=== PATIENT | female | born 1965 | race Caucasian/White ===

== ENCOUNTER 2017-11-16 23:56 | Inpatient (IN) | payer BC ==
[~2017-11-16] VITALS: Ht 165.1 cm; Wt 63.5 kg
[2017-11-17 02:25] LABS: BASOPHIL % 0.9 % (0-2); PLATELET COUNT 288 x10^3mcL (130-400); RED CELL DISTRIBUTION WIDTH 12.4 % (11.5-14.5)
[2017-11-17 02:41] LABS: CALCIUM 8.8 mg/dL (8.5-10.1); CARBON DIOXIDE 27.6 mmol/L (21-32); CHLORIDE SERUM 107 mmol/L (98-107); CREATININE SERUM 0.8 mg/dL (0.6-1.0); GFR1 > 60 mL/min; GLUCOSE SERUM 130 mg/dL (74-106); POTASSIUM SERUM 3.1 mmol/L (3.5-5.1); SODIUM SERUM 145 mmol/L (136-145)
[2017-11-17 02:53] LABS: ALKALINE PHOSPHATASE 95 U/L (46-116); ALT/SGPT 19 U/L (14-59); AST/SGOT 18 U/L (15-37); BILIRUBIN TOTAL 0.66 mg/dL (0.20-1.00); LIPASE 1031 IU/L (73-393); TOTAL PROTEIN, SERUM 6.9 g/dL (6.4-8.2)
[2017-11-17] MEDS ORDERED: CYMBALTA60 M1 PO (03:25)
[2017-11-17] MEDS ORDERED: GABAPENTIN100 M2 PO (03:25)
[2017-11-17] MEDS ORDERED: NORCO1 TA2 PO (03:26)
[2017-11-17] MEDS ORDERED: MOT800 PO (03:26)
[2017-11-17] MEDS ORDERED: TRAMADOL HCL50 MG PO (03:26)
[2017-11-17] MEDS ORDERED: BUPROPION HYDR300 MG PO (03:26)
[2017-11-17] MEDS ORDERED: AMBIEN10 MG PO (03:27)
[2017-11-17] MEDS ORDERED: ZOF4 PO (03:27)
[2017-11-17 06:07] VITALS: BP 137/74
[2017-11-17 09:09] VITALS: BP 104/71
[2017-11-17 13:26] VITALS: BP 121/64
[2017-11-17 14:38] LABS: CHOLESTEROL/HDL RATIO 3.2; MAGNESIUM 1.9 mg/dL (1.8-2.4); PHOSPHOROUS 2.8 mg/dL (2.5-4.9)
[2017-11-17 14:49] LABS: FREE T4 0.98 ng/dL (0.76-1.46); FREE THYROXINE INDEX 3.2 ug/dL (1.4-4.5)
[2017-11-17 15:47] LABS: T3 TOTAL 1.04 ng/mL
[2017-11-17 16:37] VITALS: BP 129/63
[2017-11-17 20:59] VITALS: BP 128/59
[2017-11-18 05:46] VITALS: BP 118/54
[2017-11-18 07:27] LABS: CALCIUM 8.9 mg/dL (8.5-10.1); CARBON DIOXIDE 27.2 mmol/L (21-32); CHLORIDE SERUM 107 mmol/L (98-107); CREATININE SERUM 0.9 mg/dL (0.6-1.0); GFR1 > 60 mL/min; GLUCOSE SERUM 93 mg/dL (74-106); POTASSIUM SERUM 3.5 mmol/L (3.5-5.1); SODIUM SERUM 145 mmol/L (136-145)
[2017-11-18 07:59] LABS: BASOPHIL % 0.5 % (0-2); PLATELET COUNT 245 x10^3mcL (130-400); RED CELL DISTRIBUTION WIDTH 12.4 % (11.5-14.5)
[2017-11-18 09:14] VITALS: BP 133/55
[2017-11-18 12:33] LABS: microscopic required? NO
[2017-11-18 12:37] LABS: UA SPECIFIC GRAVITY >=1.030 (1.005-1.035); urine erythrocyte NEGATIVE (NEGATIVE)
[2017-11-18 13:55] VITALS: BP 135/75
[2017-11-18 17:22] VITALS: BP 133/79
[2017-11-18 19:20] VITALS: BP 124/69
[2017-11-19 05:42] VITALS: BP 97/55
[2017-11-19 06:52] LABS: CALCIUM 7.8 mg/dL (8.5-10.1); CARBON DIOXIDE 25.1 mmol/L (21-32); CHLORIDE SERUM 111 mmol/L (98-107); CREATININE SERUM 0.7 mg/dL (0.6-1.0); GFR1 > 60 mL/min; GLUCOSE SERUM 74 mg/dL (74-106); POTASSIUM SERUM 3.2 mmol/L (3.5-5.1); SODIUM SERUM 144 mmol/L (136-145)
[2017-11-19 09:50] VITALS: BP 121/67
[2017-11-19 14:06] VITALS: BP 147/83
[2017-11-19 17:56] VITALS: BP 146/78
[2017-11-19 19:30] VITALS: BP 145/77
[2017-11-20 06:08] VITALS: BP 122/73
[2017-11-20 07:41] LABS: CALCIUM 8.7 mg/dL (8.5-10.1); CARBON DIOXIDE 27.4 mmol/L (21-32); CHLORIDE SERUM 107 mmol/L (98-107); CREATININE SERUM 0.7 mg/dL (0.6-1.0); GFR1 > 60 mL/min; GLUCOSE SERUM 81 mg/dL (74-106); POTASSIUM SERUM 3.4 mmol/L (3.5-5.1); SODIUM SERUM 144 mmol/L (136-145)
[2017-11-20 10:18] LABS: BASOPHIL % 0.8 % (0-2); PLATELET COUNT 216 x10^3mcL (130-400); RED CELL DISTRIBUTION WIDTH 11.9 % (11.5-14.5)
[2017-11-20 12:10] VITALS: BP 131/77
[2017-11-20 16:34] VITALS: BP 116/77
[2017-11-20 20:44] VITALS: BP 137/61
[2017-11-21 05:29] VITALS: BP 134/71
[2017-11-21 06:35] LABS: BASOPHIL % 0.5 % (0-2); PLATELET COUNT 266 x10^3mcL (130-400); RED CELL DISTRIBUTION WIDTH 12.1 % (11.5-14.5)
[2017-11-21 06:55] LABS: CALCIUM 8.7 mg/dL (8.5-10.1); CARBON DIOXIDE 22.9 mmol/L (21-32); CHLORIDE SERUM 106 mmol/L (98-107); CREATININE SERUM 0.7 mg/dL (0.6-1.0); GFR1 > 60 mL/min; GLUCOSE SERUM 89 mg/dL (74-106); POTASSIUM SERUM 3.4 mmol/L (3.5-5.1); SODIUM SERUM 142 mmol/L (136-145)
[2017-11-21 09:02] VITALS: BP 136/72
[2017-11-21 12:46] VITALS: BP 122/66
[2017-11-21 16:40] VITALS: BP 129/72
[2017-11-21 19:56] VITALS: BP 132/75
[2017-11-22 05:23] VITALS: BP 132/68
[2017-11-22 07:17] LABS: BASOPHIL % 0.2 % (0-2); PLATELET COUNT 234 x10^3mcL (130-400); RED CELL DISTRIBUTION WIDTH 12.2 % (11.5-14.5)
[2017-11-22 08:08] LABS: CALCIUM 8.9 mg/dL (8.5-10.1); CARBON DIOXIDE 24.7 mmol/L (21-32); CHLORIDE SERUM 108 mmol/L (98-107); CREATININE SERUM 0.6 mg/dL (0.6-1.0); GFR1 > 60 mL/min; GLUCOSE SERUM 179 mg/dL (74-106); MAGNESIUM 2.2 mg/dL (1.8-2.4); PHOSPHOROUS 2.7 mg/dL (2.5-4.9); SODIUM SERUM 145 mmol/L (136-145)
[2017-11-22 09:51] VITALS: BP 126/70
[2017-11-22] MEDS ORDERED: FLE10 PO (10:54)
[2017-11-22] MEDS ORDERED: APAP/HYDROCODON1 T13 PO (10:55)
[2017-11-22 11:26] VITALS: BP 126/70
== END 2017-11-22 16:23 | disposition home or self-care (01) | DRG 335 ==
LOC: ED 23:56 → MU 11-17 04:43 → DU 11-17 04:43 → MU 11-19 07:40
PROVIDERS: Emergency Medicine; Family Medicine; Surgery
PROC: 0DB78ZX Excision of Stomach, Pylorus, Via Natural or Artificial Opening Endoscopic, Diagnostic (ICD-10-PCS; 2017-11-18)
PROC: 0DB68ZX Excision of Stomach, Via Natural or Artificial Opening Endoscopic, Diagnostic (ICD-10-PCS; 2017-11-18)
PROC: 0DBB8ZX Excision of Ileum, Via Natural or Artificial Opening Endoscopic, Diagnostic (ICD-10-PCS; 2017-11-18)
PROC: 0DBE8ZX Excision of Large Intestine, Via Natural or Artificial Opening Endoscopic, Diagnostic (ICD-10-PCS; 2017-11-18)
PROC: 0DTJ0ZZ Resection of Appendix, Open Approach (ICD-10-PCS; 2017-11-20)
PROC: 0DNU0ZZ Release Omentum, Open Approach (ICD-10-PCS; principal; 2017-11-20 08:00)
DX: K56.50 Intestinal adhesions [bands], unspecified as to partial versus complete obstruction (principal); N17.0 Acute kidney failure with tubular necrosis; M48.56XA Collapsed vertebra, not elsewhere classified, lumbar region, initial encounter for fracture; E87.6 Hypokalemia; E83.51 Hypocalcemia; K29.70 Gastritis, unspecified, without bleeding; K57.30 Diverticulosis of large intestine without perforation or abscess without bleeding; M79.7 Fibromyalgia; N28.1 Cyst of kidney, acquired; E78.5 Hyperlipidemia, unspecified; Z68.23 Body mass index [BMI] 23.0-23.9, adult; Z87.891 Personal history of nicotine dependence; Z79.1 Long term (current) use of non-steroidal anti-inflammatories (NSAID); Z88.2 Allergy status to sulfonamides; Z88.8 Allergy status to other drugs, medicaments and biological substances; Z90.710 Acquired absence of both cervix and uterus; Z98.51 Tubal ligation status; J45.909 Unspecified asthma, uncomplicated
CPT/HCPCS: 43235; 45378; 83880; 84439; 94150; J0295; J0330; J0690; J1170; J1200; J1610; J1885; J2175; J2250; J2270; J2310; J2405; J2550; J2704; J2920; J3010; J3490; J7030; J7120; Q0092; Q9967

== ENCOUNTER 2017-12-01 09:55 | Inpatient (IN) | payer BC ==
[~2017-12-01] VITALS: Ht 165.1 cm; Wt 64.6 kg
[~2017-12-01 09:55] MED LIST: AMBIEN10 MG PO; APAP/HYDROCODON1 T13 PO; BUPROPION HYDR300 MG PO; CYMBALTA60 M1 PO; FLE10 PO; GABAPENTIN100 M2 PO; MOT800 PO; NORCO1 TA2 PO; TRAMADOL HCL50 MG PO; ZOF4 PO
[2017-12-01 11:20] LABS: UA SPECIFIC GRAVITY <=1.005 (1.005-1.035); microscopic required? YES; urine erythrocyte NEGATIVE (NEGATIVE)
[2017-12-01 11:32] LABS: CALCIUM 10.1 mg/dL (8.5-10.1); CARBON DIOXIDE 26.7 mmol/L (21-32); CREATININE SERUM 1.4 mg/dL (0.6-1.0); POTASSIUM SERUM 3.8 mmol/L (3.5-5.1)
[2017-12-01 11:40] LABS: ALBUMIN 4.3 g/dL (3.4-5.0); BILIRUBIN TOTAL 0.5 mg/dL (0.20-1.00); TOTAL PROTEIN, SERUM 8.5 g/dL (6.4-8.2)
[2017-12-01 11:51] LABS: BASOPHIL % 0.2 % (0-2); RED CELL DISTRIBUTION WIDTH 12.6 % (11.5-14.5)
[2017-12-01 12:11] LABS: PLATELET COUNT 642 x10^3mcL (130-400)
[2017-12-01] MEDS ORDERED: NEU300 PO (12:25)
[2017-12-01 13:45] VITALS: BP 128/73
[2017-12-01 13:56] VITALS: BP 128/73
[2017-12-01 15:10] LABS: T3 TOTAL 1.22 ng/mL
[2017-12-01 15:13] LABS: FREE T4 0.98 ng/dL (0.76-1.46); FREE THYROXINE INDEX 2.8 ug/dL (1.4-4.5); T4(THYROXINE) 8.9 ug/dL (4.7-13.3)
[2017-12-01 15:28] LABS: CHOLESTEROL/HDL RATIO 3.8; MAGNESIUM 2.2 mg/dL (1.8-2.4); PHOSPHOROUS 1.8 mg/dL (2.5-4.9)
[2017-12-01 17:11] VITALS: BP 134/73
[2017-12-01 20:47] VITALS: BP 123/82
[2017-12-02 05:04] LABS: AMPHETAMINE QUAL UR NONE DETECTED (NEG <=1000)
[2017-12-02 05:28] VITALS: BP 101/58
[2017-12-02 06:01] LABS: BASOPHIL % 0.3 % (0-2); RED CELL DISTRIBUTION WIDTH 12.8 % (11.5-14.5)
[2017-12-02 06:46] LABS: PLATELET COUNT 427 x10^3mcL (130-400)
[2017-12-02 07:05] LABS: CALCIUM 9.3 mg/dL (8.5-10.1); CARBON DIOXIDE 27.1 mmol/L (21-32); CHLORIDE SERUM 105 mmol/L (98-107); GFR1 > 60 mL/min; GLUCOSE SERUM 104 mg/dL (74-106); MAGNESIUM 2.2 mg/dL (1.8-2.4); PHOSPHOROUS 4.2 mg/dL (2.5-4.9); POTASSIUM SERUM 3.3 mmol/L (3.5-5.1); SODIUM SERUM 144 mmol/L (136-145)
[2017-12-02 09:30] VITALS: BP 128/50
[2017-12-02 17:52] VITALS: BP 108/50
[2017-12-02 21:32] VITALS: BP 118/58
[2017-12-03 05:18] VITALS: BP 102/55
[2017-12-03 06:50] LABS: BASOPHIL % 0.6 % (0-2); PLATELET COUNT 328 x10^3mcL (130-400); RED CELL DISTRIBUTION WIDTH 12.5 % (11.5-14.5)
[2017-12-03 06:51] LABS: CALCIUM 8.3 mg/dL (8.5-10.1); CARBON DIOXIDE 26.8 mmol/L (21-32); CHLORIDE SERUM 105 mmol/L (98-107); GFR1 > 60 mL/min; GLUCOSE SERUM 88 mg/dL (74-106); MAGNESIUM 2.3 mg/dL (1.8-2.4); PHOSPHOROUS 3.1 mg/dL (2.5-4.9); POTASSIUM SERUM 3.2 mmol/L (3.5-5.1); SODIUM SERUM 141 mmol/L (136-145)
[2017-12-03 07:19] LABS: IRON 42 ug/dL (50-170)
[2017-12-03 07:20] LABS: TOTAL IRON BINDING CAPACITY 215 ug/dL (250-450)
[2017-12-03 07:41] LABS: RED BLOOD CELLS 3.39 M/mm3 (4.10-5.10)
[2017-12-03 08:00] VITALS: BP 105/60
[2017-12-03 13:51] VITALS: BP 105/60
[2017-12-03 17:50] VITALS: BP 121/71
[2017-12-03 19:30] VITALS: BP 112/54
[2017-12-04 05:47] VITALS: BP 111/61
[2017-12-04 06:02] LABS: BASOPHIL % 0.8 % (0-2); PLATELET COUNT 302 x10^3mcL (130-400); RED CELL DISTRIBUTION WIDTH 12.4 % (11.5-14.5)
[2017-12-04 06:35] LABS: CALCIUM 8.4 mg/dL (8.5-10.1); CHLORIDE SERUM 109 mmol/L (98-107); CREATININE SERUM 0.9 mg/dL (0.6-1.0); GFR1 > 60 mL/min; GLUCOSE SERUM 83 mg/dL (74-106); MAGNESIUM 2.1 mg/dL (1.8-2.4); PHOSPHOROUS 3.5 mg/dL (2.5-4.9); POTASSIUM SERUM 3.7 mmol/L (3.5-5.1); SODIUM SERUM 145 mmol/L (136-145)
[2017-12-04 09:14] VITALS: BP 111/61
[2017-12-04 09:28] VITALS: BP 131/70
== END 2017-12-04 15:46 | disposition home or self-care (01) | DRG 871 ==
LOC: ED 09:55 → MU 12:09 → DU 12:09 → MU 12-02 08:52
PROVIDERS: Emergency Medicine; Family Medicine; Student in an Organized Health Care Education/Training Program
DX: A41.9 Sepsis, unspecified organism (principal); N17.0 Acute kidney failure with tubular necrosis; M48.56XA Collapsed vertebra, not elsewhere classified, lumbar region, initial encounter for fracture; K56.50 Intestinal adhesions [bands], unspecified as to partial versus complete obstruction; R65.20 Severe sepsis without septic shock; J45.909 Unspecified asthma, uncomplicated; M79.7 Fibromyalgia; D47.3 Essential (hemorrhagic) thrombocythemia; G47.00 Insomnia, unspecified; N28.1 Cyst of kidney, acquired; E87.6 Hypokalemia; E78.5 Hyperlipidemia, unspecified; D64.9 Anemia, unspecified; Z88.2 Allergy status to sulfonamides; Z88.8 Allergy status to other drugs, medicaments and biological substances; Z90.710 Acquired absence of both cervix and uterus; Z79.899 Other long term (current) drug therapy; Z80.9 Family history of malignant neoplasm, unspecified; Z87.891 Personal history of nicotine dependence; Z72.89 Other problems related to lifestyle; Z98.891 History of uterine scar from previous surgery
CPT/HCPCS: 83880; 84439; J1030; J1885; J2270; J2405; J2543; J2550; J3490; J7030; J8597; Q0092; Q9966; Q9967